=== PATIENT | female | born 1975 | race Caucasian/White ===

== ENCOUNTER → 2017-06-11 | Outpatient (CLI) | payer OTHER | LOC: CIMAGING 14:04 | DX: Z12.31 Encounter for screening mammogram for malignant neoplasm of breast (principal) ==

== ENCOUNTER 2018-03-16 14:04 | Emergency (ER) | payer MEDICAID, OTHER ==
--- NOTE | 2018-03-16 15:47 | EDPHY ---
H & P Stated Complaint: 1 min episode l face/hand numbness/?speech issues now resolved /months daugherty/cp Time Seen by Provider: 03/16/18 14:51 HPI/ROS: CHIEF COMPLAINT: Left hand weakness, speech difficulty HISTORY OF PRESENT ILLNESS: 43-year-old female presents with left hand weakness and speech difficulty. She was in the bathroom this morning, noted that her left hand was weak. She began talking to her son and had incomprehensible speech. The episode lasted less than 1 min and then completely resolved. No headache other symptoms. Long history of migraine headaches and ocular migraines. No recent trauma. Under a lot of stress recently. REVIEW OF SYSTEMS: complete 10 point ROS reviewed and is negative except for the noted elements in the HPI - Personal History LMP (Females 10-55): Now Current Tetanus Diphtheria and Acellular Pertussis (TDAP): Yes - Medical/Surgical History Hx Asthma: No Hx Chronic Respiratory Disease: No Hx Diabetes: No Hx Cardiac Disease: No Hx Renal Disease: No Hx Cirrhosis: No Hx Alcoholism: No Hx HIV/AIDS: No Hx Splenectomy or Spleen Trauma: No Other PMH: migraine/ocular migraines - Social History Smoking Status: Never smoked Alcohol Use: Sober Drug Use: None Additional Social History: Single - Physical Exam Exam: General Appearance: Alert, pleasant Eyes: Pupils equal and round, no conjunctival pallor or injection ENT, Mouth: Mucous membranes moist Neck: Normal inspection Respiratory: Lungs are clear to auscultation Cardiovascular: Regular rate and rhythm, no murmur Gastrointestinal: Abdomen is soft and nontender Neurological: Alert, oriented x3, cranial nerves II through XII intact, motor 5 /5, sensory intact to light touch, normal gait Skin: Warm and dry, no rash Extremities: Nontender, no pedal edema Psychiatric: Mood and affect normal Constitutional: Initial Vital Signs Temperature (C) 36.7 C 03/16/18 14:16 Heart Rate 77 03/16/18 14:16 Respiratory Rate 16 03/16/18 14:16 Blood Pressure 109/77 03/16/18 14:16 O2 Sat (%) 96 03/16/18 14:16 O2 Delivery Mode Room Air Allergies/Adverse Reactions: acetaminophen [From Nasima-Peculiar] Allergy (Intermediate, Verified 03/16/18 14:15 ) UNK aspirin [From Nasima-Peculiar] Allergy (Intermediate, Verified 03/16/18 14:15) UNK calcium carbonate [From Nasima-Peculiar] Allergy (Intermediate, Verified 03/16/18 14:15) UNK citric acid [From Nasima-Peculiar] Allergy (Intermediate, Verified 03/16/18 14:15) UNK potassium bicarbonate [From Nasima-Peculiar] Allergy (Intermediate, Verified 14:15) UNK sodium bicarbonate [From Nasima-Peculiar] Allergy (Intermediate, Verified 03/16/18 14:15) UNK Home Medications: Medication Instructions Recorded NK [No Known Home Meds] 03/16/18 Medical Decision Making - Diagnostics EKG Interpretation: EKG interpreted by me reveals normal sinus rhythm, rate 60, no ST or T segment changes. Interpretation: Normal EKG Imaging Results: Imaging Impressions Head CT 03/16/18 14:51 Impression: 1. Normal CT brain without contrast. 2. Consider MRI of the brain, if there is continued clinical concern. Findings and recommendations discussed with Emergency Department physician, VÍCTOR MANN at 15:27 hour, 03/16/2018. Final report concurs with initial preliminary interpretation. Brain MRI 03/16/18 15:44 Impression: 1. There is no acute intracranial abnormality. 2. 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 Findings were discussed with VÍCTOR MANN MD at 16:47, on 03/16/2018. Imaging: Discussed imaging studies w/ call person Radiologist, I viewed and interpreted images myself ED Course/Re-evaluation: This patient presents after a less than 1 min episode of neurologic symptoms, including left hand weakness and speech difficulty. Neurologic exam is normal. Given the brief duration of the episode, I think that TIA is very unlikely in this patient. CT scan of the head is unremarkable. MRI reveals a Chiari 1 malformation, otherwise unremarkable. Results were discussed with the patient. I feel that she is safe and stable for discharge home. I have encouraged her to keep her appointment with her primary care physician. She will return for recurrent symptoms or any concerns. Differential Diagnosis: Altered mental status including but not limited to hypoglycemia, infectious process, electrolyte abnormality, head injury, CVA, and intoxicants. - Data Points Laboratory Results: Laboratory Results 03/16/18 15:10 03/16/18 15:10 03/16/18 03/16/18 03/16/18 15:31 15:10 15:10 WBC 6.57 10^3/uL 10^3/uL (3.80-9.50) RBC 4.44 10^6/uL 10^6/uL (4.18-5.33) Hgb 13.7 g/dL g/dL (12.6-16.3) Hct 40.4 % % (38.0-47.0) MCV 91.0 fL fL (81.5-99.8) MCH 30.9 pg pg (27.9-34.1) MCHC 33.9 g/dL g/dL (32.4-36.7) RDW 11.4 % L % (11.5-15.2) Plt Count 288 10^3/uL 10^3/uL (150-400) MPV 9.2 fL fL (8.7-11.7) Neut % (Auto) 58.4 % % (39.3-74.2) Lymph % (Auto) 32.0 % % (15.0-45.0) [place] % (Auto) 7.5 % % (4.5-13.0) Eos % (Auto) 1.1 % % (0.6-7.6) Baso % (Auto) 0.8 % % (0.3-1.7) Nucleat RBC Rel Count 0.0 % % (0.0-0.2) Absolute Neuts (auto) 3.85 10^3/uL 10^3/uL (1.70-6.50) Absolute Lymphs (auto) 2.10 10^3/uL 10^3/uL (1.00-3.00) Absolute Monos (auto) 0.49 10^3/uL 10^3/uL (0.30-0.80) Absolute Eos (auto) 0.07 10^3/uL 10^3/uL (0.03-0.40) Absolute Basos (auto) 0.05 10^3/uL 10^3/uL (0.02-0.10) Absolute Nucleated RBC 0.00 10^3/uL 10^3/uL (0-0.01) Immature Gran % 0.2 % % (0.0-1.1) Immature Gran # 0.01 10^3/uL 10^3/uL (0.00-0.10) Sodium 143 mEq/L mEq/L (135-145) Potassium 4.0 mEq/L mEq/L (3.3-5.0) Chloride 108 mEq/L mEq/L (97-110) Carbon Dioxide 24 mEq/l mEq/l (22-31) Anion Gap 11 mEq/L mEq/L (6-14) BUN 8 mg/dL mg/dL (7-23) Creatinine 0.7 mg/dL mg/dL (0.6-1.0) Estimated GFR > 60 Glucose 81 mg/dL mg/dL (70-100) Calcium 9.4 mg/dL mg/dL (8.5-10.4) POC Troponin I 0.00 ng/mL ng/mL (0.00-0.08) Point of Care Test Results: Chemistry 03/16/18 15:31 POC Troponin I 0.00 ng/mL ng/mL (0.00-0.08) Departure - Departure Disposition: Home, Routine, Self-Care Clinical Impression: Migraine Qualifiers: Migraine type: without aura Status migrainosus presence: without status migrainosus Intractability: not intractable Qualified Code(s): G43.009 - Migraine without aura, not intractable, without status migrainosus Condition: Good Instructions: Migraine Headache (ED) Additional Instructions: The MRI of your brain shows a Chiari I malformation. 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 Sometimes, Chiari I malformations can cause headache or neck pain. I do not think this is related to your symptoms today. Keep your appointment with your primary care physician. Return for recurrent symptoms or any concerns. Referrals: Alexei Arriola MD [Medical Doctor] - As per Instructions Dorita Elise MD [[facility] [place] Care Provider] - As per Instructions (Call to make an appointment.)
[2018-03-16 16:05] LABS: PLATELET COUNT 288 10^3/uL (150-400)
[2018-03-16 17:08] VITALS: BP 121/78
--- NOTE | 2018-03-16 18:42 | CPEKG ---
Test Reason : OPEN Blood Pressure : / mmHG Vent. Rate : 060 BPM Atrial Rate : 060 BPM P-R Int : 148 ms QRS Dur : 073 ms QT Int : 429 ms P-R-T Axes : 066 036 040 degrees QTc Int : 429 ms Sinus rhythm Confirmed by Mikayla Osborne ([id number]) on 03/16/2018 6:41:27 PM Referred By: Confirmed By:Mikayla Osborne
== END 2018-03-16 17:08 | disposition home or self-care (01) ==
DX: M62.81 Muscle weakness (generalized) (principal); G43.009 Migraine without aura, not intractable, without status migrainosus; G93.5 Compression of brain
CPT/HCPCS: 84484-PO